=== PATIENT | male | born 1965 | race Asian ===

== ENCOUNTER 2018-09-29 16:14 | Emergency (ER) | payer MEDICAID ==
[~2018-09-29] VITALS: Ht 170.2 cm; Wt 77.1 kg
[2018-09-29 16:35] VITALS: BP 128/72
--- NOTE | 2018-09-29 16:35 | NUR ---
ED Nurse Note: PT WALKED IN TO ER TODAY FROM HOME. AOX4. PT C/O LEFT HAND PAIN, 6/10 AFTER GETTING BIT BY HIS OWN DOG X 30 MINUTES AGO. PT STATES HIS DOG IS UP TO DATE ON VACCINATIONS. PT PRESENTS WITH TWO PUNCTURE WOUNDS ON DORSAL SURFACE OF LEFT HAND AND TWO PUNCTURE WOUNDS TO VENTRAL SURFACE OF LEFT HAND. ALL SITES NOT ACTIVE BLEEDING, CAP REFILL <3 SECONDS, SENSATION AND CIRCULATION INTACT, FULL ROM OF EXTREMITY AND DIGITS, 5/5 MUSCLE STRENGTH.
[2018-09-29] MEDS ORDERED: Tetanus/Diptheria/Pertussis Vaccine 0.5ml Syr IM ONE (16:45)
[2018-09-29] MEDS ORDERED: Hydrogen Peroxide 473ml Bottle TOPIC ONE ×2 (16:47→17:00)
--- NOTE | 2018-09-29 17:11 | Emergency Room Report ---
History of Present Illness General Chief Complaint: Animal Bite Source: Patient Present Illness HPI 53-year-old male with no secondhand past medical history here complaining of pain and multiple abrasions on the left hand secondary to dog bite patient claims that few hours ago his own dog bit his hand however he did wash his hair with hydrogen peroxide afterwards. She has full sensation and range of motion of the left hand. Has tingling and numbness. The pain localizes to the sites of the wound and waiting at 7 out of 10. The thickening medication for pain. denied chills, chest pain, palpitation. He is not up-to-date with his tetanus shot Allergies: Coded Allergies: No Known Allergies (Unverified , 09/29/18) Patient History Past Medical History: see triage record Past Surgical History: none Pertinent Family History: none Immunizations: other - Tdap today Reviewed Nursing Documentation: PMH: Agreed; PSxH: Agreed Nursing Documentation-PM Past Medical History: No History, Except For Hx Diabetes: Yes Review of Systems All Other Systems: negative except mentioned in HPI Physical Exam Vital Signs Date Time Temp Pulse Resp B/P (MAP) Pulse Ox O2 Delivery O2 Flow Rate FiO2 09/29/18 16:27 98.8 81 18 132/68 98 Room Air Sp02 EP Interpretation: reviewed, normal General Appearance: normal inspection, well appearing, no apparent distress Head: normocephalic, atraumatic Eyes: bilateral eye normal inspection, bilateral eye PERRL ENT: normal ENT inspection, normal pharynx Neck: normal inspection, supple Respiratory: normal inspection, chest non-tender, no rhonchi, no wheezing Cardiovascular #1: normal inspection, no edema, no gallop, no murmur Cardiovascular #2: 2+ radial (R), 2+ radial (L) Gastrointestinal: normal inspection, non tender, soft Rectal: deferred Genitourinary: deferred Musculoskeletal: back normal, gait/station normal, swelling - left [place] one side Neurologic: normal inspection, alert, oriented x3 Psychiatric: normal inspection, judgement/insight normal Skin: abrasions - superficial lacerations on the left palm and dorsum of left hand. Lymphatic: normal inspection, no adenopathy Medical Decision Making PA Attestation all diagnosis and treatment plans are reviewed and discussed with my supervising physician Dr. Melgoza Diagnostic Impression: Primary Impression: Dog bite of left hand with infection ER Course 53-year-old male with no secondhand past medical history here complaining of pain and multiple abrasions on the left hand secondary to dog bite patient claims that few hours ago his own dog bit his hand however he did wash his hair with hydrogen peroxide afterwards. She has full sensation and range of motion of the left hand. Has tingling and numbness. The pain localizes to the sites of the wound and waiting at 7 out of 10. The thickening medication for pain. denied chills, chest pain, palpitation. He is not up-to-date with his tetanus shot Ddx considered but are not limited to Aberration of left palm due to dog bite, laceration, infected abrasion, foreign body and tearing of tendon Vital signs: are WNL, pt. is afebrile H&PE are most consistent with infection with abrasion secondary to animal bite left hand and some tendon involvement. ORDERS: x-ray of left hand, TDAP, Keflex, naproxen, ED INTERVENTIONS: wound dressing and Tdap DISCHARGE: At this time pt. is stable for d/c to home. Will provide printed patient care instructions, and any necessary prescriptions. Care plan and follow up instructions have been discussed with the patient prior to discharge. A should follow with hand specialist for further assessment of involvement of tendon secondary to animal bite take medication as directed. Fever chills return to the emergency room if any numbness or tingling in the left hand follow up with your primary care provider. Other X-Ray Diagnostic Results Other X-Ray Diagnostic Results : X-Ray ordered: left hand # of Views/Limited Vs Complete: 3 View Indication: Other - rule out tendon involvement and foreign body\ PA Xray: Interpretation reviewed, by supervising MD, and agrees with findings. Interpretation: no dislocation, no fractures, other - possible tendon involvement no FB Impression: Other Electronically Signed by: brianda Orozco PA-C Last Vital Signs Date Time Temp Pulse Resp B/P (MAP) Pulse Ox O2 Delivery O2 Flow Rate FiO2 09/29/18 16:35 98.6 76 16 128/72 99 Room Air Disposition: HOME, SELF-CARE Condition: Stable Scripts Naproxen* (NAPROXEN*) 500 Mg Tablet 500 MG ORAL TWICE A DAY, #14 TAB Prov: Brianda Love 09/29/18 Amoxicillin/Potassium Clav 875-125* (AUGMENTIN 875-125 TABLET*) 1 Each Tablet 1 TAB ORAL TWICE A DAY for 10 Days, #20 TAB Prov: Brianda Love 09/29/18 Patient Instructions: Animal Bite Brianda Love Sep 29, 2018 17:11
[2018-09-29] MEDS ORDERED: AUGMENTIN 875-1 EAC1 ORAL (17:12)
[2018-09-29] MEDS ORDERED: NAPROXEN500 M2 ORAL (17:12)
[2018-09-29 17:22] VITALS: BP 126/70
--- NOTE | 2018-09-29 17:23 | NUR ---
ED Nurse Note: PT SITTING PEACEFULLY IN BED IN NAD. AOX4. PRESCRIPTIONS AND DISCHARGE PAPERWORK EXPLAINED TO PT. PT VERBALIZES UNDERSTANDING AND ALL QUESTIONS ANSWERED. PRESCRIPTIONS AND DISCHARGE PAPERWORK GIVEN TO PT AND ID WRISTBAND REMOVED. PT WALKED OUT OF ER WITH STEADY GAIT AND ALL BELONGINGS.
--- NOTE | 2018-09-30 09:31 | Diagnostic Imaging Report ---
Indication: Left hand pain Technique: 3 views left hand Comparison: none Findings: No acute fractures. No dislocations. There are mild degenerative changes of the first interphalangeal joint, the third proximal interphalangeal joint, and of the fourth and fifth proximal and distal interphalangeal joints. Soft tissue gas is seen in the first and second webspace. No definite radiopaque foreign body There are vascular calcifications. Impression: Soft tissue gas within the first and second webspace. This is most likely due to penetrating trauma in patient with history of recent dogbite. However, the possibly of infection with gas-forming organism should also be considered. Correlation with clinical findings is recommended. Negative for foreign body or evidence of acute bony trauma Findings discussed by phone with Dr. Guerra at the time of interpretation
== END 2018-09-29 17:30 | disposition home or self-care (01) ==
LOC: EMR 17:26
DX: S61.452A Open bite of left hand, initial encounter (principal); W54.0XXA Bitten by dog, initial encounter; Y92.9 Unspecified place or not applicable; E11.9 Type 2 diabetes mellitus without complications; Z23 Encounter for immunization
CPT/HCPCS: 90471; 90715; 99283